=== PATIENT | female | born 1965 | race Caucasian/White ===

== ENCOUNTER 2016-09-22 12:35 | Day surgery (SDC) | payer OTHER ==
[~2016-09-22 12:35] MED LIST: AMBIEN10 MG PO; BENADRYL25 MG PO; BUSPAR15 MG PO; CELEBREX200 MG PO; CELECOXIB200 MG PO; COUMADIN1 MG PO; DEXILANT60 MG PO; ESCITALOPRAM OX10 MG PO; EXCEDRIN EXTRA1 EACH PO; FERROUS SULFAT325 MG PO; FLEXERIL10 MG PO; FLONASE16 G1 BOTH NARES; FLOVENT 11120 INHALA IH; FLUTICASONE PRO16 GM BOTH NARES; GABAPENTIN300 MG PO; HYDROCODONE/AP1 EACH PO; IBUPROFEN100 MG/51 PO; LEXAPRO10 MG PO; LIDODERM 5% P1 PATCH TD; METHADONE5 MG PO; MIRTAZAPINE30 MG PO; MOTRIN PM CAPL1 EAC1 PO; MOTRIN800 MG PO; NAPROXEN500 MG PO; NEURONTIN300 MG PO; NORTRIPTYLINE H25 MG PO; OXYCODONE HCL5 MG PO; OXYCODONE-APAP1 EAC6 PO; OXYCONTIN15 MG PO; PAMELOR75 MG PO; PERCOCET 10/1 TABLET PO; PERCOCET 5/31 TABLET PO; PROAIR HFA8.5 GM IH; PROMETHAZINE HC25 M1 PO; PROTONIX40 MG PO; QUETIAPINE FUM100 MG PO; RYBIX ODT50 MG PO; SENNA-TIME S T1 EACH PO; SUCRALFATE1 GM PO; TIZANIDINE HCL4 MG PO; TRAMADOL HCL50 MG PO; TYLENOL REGULA325 MG PO; VENLAFAXINE HCL75 MG PO; VOLTAREN 1% GE100 GM TP; ZANTAC150 MG PO; ZOLPIDEM TARTRA10 MG PO
== END 2016-09-22 17:33 | disposition home or self-care (01) ==
LOC: CATH 12:35
DX: Z01.810 Encounter for preprocedural cardiovascular examination (principal); R94.31 Abnormal electrocardiogram [ECG] [EKG]; M20.22 Hallux rigidus, left foot; J45.20 Mild intermittent asthma, uncomplicated; D64.9 Anemia, unspecified; F17.200 Nicotine dependence, unspecified, uncomplicated; K21.9 Gastro-esophageal reflux disease without esophagitis; E66.9 Obesity, unspecified; M96.1 Postlaminectomy syndrome, not elsewhere classified; R73.09 Other abnormal glucose; Z98.1 Arthrodesis status; Z96.659 Presence of unspecified artificial knee joint; Z68.34 Body mass index [BMI] 34.0-34.9, adult
CPT/HCPCS: C1769; C1887; J1644; J2250; J3010; J7050